=== PATIENT | female | born 1990 | race Caucasian/White ===

== ENCOUNTER 2021-04-27 06:18 | Day surgery (SDC) | payer MEDICAID ==
[2021-04-19 14:56] LABS: BASOPHILS % (AUTO) 0.4 % (0-1); EOSINOPHILS # (AUTO) 0.3 X10'3 (0-0.9); EOSINOPHILS % (AUTO) 4.2 % (0-6); LYMPHOCYTES # (AUTO) 2.6 X10'3 (1.1-4.8); LYMPHOCYTES % (AUTO) 33.9 % (21-51); MEAN CORPUSCULAR HEMOGLOBIN 31.7 PG (27.0-31.0); MEAN CORPUSCULAR HGB CONC 34.4 g/dL (33.0-36.5); MONOCYTES # (AUTO) 0.4 X10'3 (0-0.9); NEUTROPHILS # (AUTO) 4.3 X10'3 (1.8-7.7); NEUTROPHILS % (AUTO) 56.5 % (42-75); PRE OP HEMATOCRIT 40.8 % (35.0-45.0); PRE OP PLATELET COUNT 289 X10'3 (140-440); RED BLOOD COUNT 4.43 X10'6 (4.20-5.60)
[2021-04-19 15:02] LABS: ALBUMIN 4.3 G/DL (3.4-5.0); ALBUMIN/GLOBULIN RATIO 1.3 (1.1-1.5); ALKALINE PHOSPHATASE 60 IU/L (46-116); BLOOD UREA NITROGEN 15 MG/DL (7-18); BUN/CREATININE RATIO 19.7 (6.6-38.0); CALCIUM 9.1 MG/DL (8.5-10.1); CHLORIDE 105 MMOL/L (99-107); CREATININE 0.76 MG/DL (0.40-0.90); PRE OP ALT 35 U/L (30-65); PRE OP ANION GAP 9 (8-16); PRE OP AST 24 U/L (10-37); PRE OP BILIRUB, TOTAL 0.6 MG/DL (0.0-1.0); PRE OP GLUCOSE 101 MG/DL (70-104); PRE OP POTASSIUM 3.9 MMOL/L (3.4-5.1); PRE OP SODIUM 140 MMOL/L (135-145); TOTAL CARBON DIOXIDE 25.6 MMOL/L (24-32); TOTAL PROTEIN 7.7 G/DL (6.4-8.2); eGFR 89 ML/MIN
[2021-04-19 15:06] LABS: HCG SERUM QL NEGATIVE
[2021-04-27] VITALS (10 sets, daily range): BP systolic 124–140; BP diastolic 68–98
[~2021-04-27] VITALS: Ht 175.3 cm; Wt 127.4 kg
[~2021-04-27 06:18] MED LIST: DULO30CA52 PO; LIDOcaine 1% (10mg/ml) 2ml vial ONE; LORA-269 PO; ceFAZolin inj. 3,000 MG in normal saline 100ml IV soln 100 ML IV ONE; famotidine 20mg tablet PO ONE; ringers solution, lacted 1,000 ML IV SCH
[2021-04-27] MEDS ORDERED: BUPIVAcaine/PF 2.5mg/ml (0.25%) 10ml vial ONE (07:06)
[2021-04-27] MEDS ORDERED: BUPIVAcaine 0.5% W/EPI /PF 10ml vial ONE (07:11)
[2021-04-27] MEDS ORDERED: sevoflurane 250ml liquid IH ONE (07:28)
[2021-04-27] MEDS ORDERED: neostigmine methylsulfate 1 MG/ML 10ml vial ONE (07:28)
[2021-04-27] MEDS ORDERED: glycopyrrolate 0.2mg/ml inj ONE (07:28)
[2021-04-27] MEDS ORDERED: midazolam 1 mg/ML 2ml injection ONE (07:41)
[2021-04-27] MEDS ORDERED: fentaNYL/PF 50MCG/1 ML 2ML syringe ONE (07:41)
[2021-04-27] MEDS ORDERED: propofol inj 20 ML IV ONE ×2 (07:42)
[2021-04-27] MEDS ORDERED: LIDOcaine 2% (20mg/ml) 5ml vial ONE ×2 (07:42)
[2021-04-27] MEDS ORDERED: rocuronium 10mg/ml inj IV ONE (07:43)
[2021-04-27] MEDS ORDERED: ondansetron/PF 4mg/2ml inj ONE (07:49)
[2021-04-27] MEDS ORDERED: dexamethasone sod phosphate 4mg/ml inj. ONE (07:49)
[2021-04-27] MEDS ORDERED: meperidine/PF 25mg/ml syringe ONE (08:15)
[2021-04-27] MEDS ORDERED: ketorolac trometh. 30mg/ml inj. ONE (08:15)
--- NOTE | 2021-04-27 08:32 | NUR ---
Received from OR via [facility], accompanied by Anesthesiologist DR URIBE and report given by Anesthesiologist. PT DROWSY, DENIES PAIN, ABDOMEN W/SMALL LAP SITE W/DERMABOND CDI, IVON PAD IN PLACE. Addendum: 04/27/21 at 0847 by Naomy Perdomo RN Amended: Links added.
[2021-04-27] MEDS ORDERED: morphine 4 MG/ML inj SYRINge IV PRN (08:40)
[2021-04-27] MEDS ORDERED: ondansetron/PF 4mg/2ml inj IV PRN (08:40)
[2021-04-27] MEDS ORDERED: morphine 2 MG/ML inj. syringe IV PRN (08:40)
[2021-04-27] MEDS ORDERED: ringers solution, lacted 1,000 ML IV SCH (08:40)
[2021-04-27] MEDS ORDERED: meperidine/PF 25mg/ml syringe IV PRN ×3 (08:40)
[2021-04-27] MEDS ORDERED: proCHLORperazine 10 MG/2 ml inj IV PRN (08:40)
[2021-04-27] MEDS ORDERED: HYDROcodone/acetaminophen 5mg/325mg tablet PO ONE (09:20)
--- NOTE | 2021-04-27 09:52 | NUR ---
PT UP AND ABLE TO AMBULATE SAFELY, PAIN MEDICATION GIVEN FOR [facility], MILD DISCOMFORT. D/C INSTRUCTIONS GIVEN AND GONE OVER W/PT WHO VERBALIZED UNDERSTANDING. PT D/CD TO HOME VIA W/C TO PRIVATE VEHICLE W/O INCIDENT. Addendum: 04/27/21 at 1002 by Naomy Perdomo RN Amended: Links added.
== END 2021-04-27 09:52 | disposition home or self-care (01) ==
LOC: PAS 06:18
PROVIDERS: ATTEND Obstetrics & Gynecology
DX: Z30.2 Encounter for sterilization (principal); F32.9 Major depressive disorder, single episode, unspecified; G47.30 Sleep apnea, unspecified; E66.9 Obesity, unspecified; Z68.41 Body mass index [BMI] 40.0-44.9, adult; Z20.822 Contact with and (suspected) exposure to COVID-19; Z79.899 Other long term (current) drug therapy; Z90.49 Acquired absence of other specified parts of digestive tract; Z98.890 Other specified postprocedural states
CPT/HCPCS: 36415; 58670; 80053; 82948; 84703; 85025; J0690; J1100; J1885; J2001; J2175; J2250; J2405; J2704; J3010; J3490; J7120; U0003; U0005; A4618; A7000; J2710